=== PATIENT | female | born 1935 | race Hispanic/Latino ===

== ENCOUNTER 2016-09-27 15:31 | Outpatient (CLI) | payer MEDICARE, OTHER ==
--- NOTE | 2016-09-27 16:19 | XRay Report ---
Right foot: Trauma, pain. There is a nondisplaced oblique fracture through the base of the fifth metatarsal. The bones appear generally decreased in overall mineralization but no other bone or joint abnormality is identified. Impression: Traumatic fracture right fifth metatarsal. Provider and patient notified.
== END 2016-09-27 15:32 | disposition home or self-care (01) ==
LOC: SPVIMAG 15:31
PROVIDERS: ATTEND Internal Medicine Hematology & Oncology
DX: S92.351A Displaced fracture of fifth metatarsal bone, right foot, initial encounter for closed fracture (principal); X58.XXXA Exposure to other specified factors, initial encounter; Y93.89 Activity, other specified; Y92.89 Other specified places as the place of occurrence of the external cause; Y99.8 Other external cause status

== ENCOUNTER 2016-09-27 17:06 | Emergency (ER) | payer MEDICARE, OTHER | END 2016-09-27 18:00 | disposition left against medical advice (07) | LOC: ED 17:06 | DX: Z53.21 Procedure and treatment not carried out due to patient leaving prior to being seen by health care provider (principal) ==